=== PATIENT | female | born 1985 | race Caucasian/White ===

== ENCOUNTER → 2019-04-11 19:30 | Observation (INO) ==
[2019-04-11 19:33] LABS: Candida DNA Not Detected (Not Detect); Gardnerella DNA Not Detected (Not Detect); Trichomonas DNA Not Detected (Not Detect)
== END | disposition home or self-care (01) ==
LOC: 1NENULAB
PROVIDERS: ADMIT Registered Nurse; ATTEND Registered Nurse

== ENCOUNTER 2019-04-12 14:30 | Inpatient (IN) ==
[2019-04-19] MEDS ORDERED: Ringers Solution, Lactated 1,000 ML IVC ONE (10:16)
[2019-04-19] MEDS ORDERED: Famotidine 20 MG/2 ML VIAL IVP ONE (10:16)
[2019-04-19] MEDS ORDERED: CeFAZolin 2,000 MG/50 ML BAG IVPB ONE (10:16)
[2019-04-19] MEDS ORDERED: Metoclopramide 10 MG/2 ML VIAL IVP ONE (10:16)
[2019-04-19 10:46] LABS: Basophils % 0.3 %; Eosinophils % 0.2 %; Hemoglobin 10.6 g/dL (11.5-15.4); Immature Granulocytes % 1.4 % (0-4); Lymphocytes # 1.6 K/mcL (0.6-4.6); Mean Corpuscular HGB Conc 29.4 g/dL (31.6-35.5); Mean Corpuscular Hemoglobin 24.5 pg (28.0-33.3); Mean Corpuscular Volume 83.3 fL (83.0-100.0); Mean Platelet Volume 9.8 fL (9.4-12.4); Monocytes # 0.6 K/mcL (0.0-1.3); Monocytes % 6.4 %; Neutrophils # 6.7 K/mcL (1.6-8.9); Platelet Count 333 K/mcL (140-400); Red Blood Count 4.32 M/mcL (3.82-4.97); Red Cell Distribution Width 13.7 % (11.5-14.5); Segmented Neutrophils % 73.7 %; White Blood Count 9.1 K/mcL (4.3-11.1)
[2019-04-19 11:03] LABS: Amphetamine Screen,Urine Negative ng/mL (Cutoff=1000); Barbiturate Screen,Urine Negative ng/mL (Cutoff=200); Benzodiazepines Screen,Urine Negative ng/mL (Cutoff=200); Cannabinoid Screen,Urine Negative ng/mL (Cutoff = 50); Cocaine Screen,Urine Negative ng/mL (Cutoff= 300); Opiate Screen,Urine Negative ng/mL (Cutoff=300); Phencyclidine Screen,Urine Negative ng/mL (Cutoff=25)
[2019-04-19] MEDS: Ringers Solution, Lactated 1,000 ML IVC SCH ×2 (12:09→18:40)
[2019-04-19] MEDS ORDERED: *HR* Promethazine 25 MG/ML VIAL IVP PRN (15:07)
[2019-04-19] MEDS ORDERED: Acetaminophen IV 1,000 MG/100 ML INFUS..BTL IVPB ONE (15:07)
[2019-04-19] MEDS ORDERED: Ondansetron 4 MG/2 ML VIAL IVP ONE (15:07)
[2019-04-19] MEDS ORDERED: *HR* LORazepam 2 MG/ML VIAL IVP ONE (15:12)
[2019-04-19] MEDS ORDERED: Dextrose Gel 15 GM/37.5 ML TUBE PO ONE (17:23)
[2019-04-19] MEDS ORDERED: Metoclopramide 10 MG/2 ML VIAL IVP PRN ×2 (18:29→22:30)
[2019-04-19] MEDS ORDERED: D5% in Lactated Ringers 1,000 ML IVC SCH (18:30)
[2019-04-19] MEDS ORDERED: Sennosides 8.6 MG TABLET PO PRN (22:30)
[2019-04-19] MEDS ORDERED: *HR* OxyCODONE/APAP 5/325 TABLET PO PRN (22:30)
[2019-04-19] MEDS ORDERED: Ondansetron 4 MG/2 ML VIAL IVP PRN (22:30)
[2019-04-19] MEDS ORDERED: Rho Immune Globulin 1,500 UNIT SYRINGE IM ONE (22:30)
[2019-04-19] MEDS ORDERED: Oxytocin 20 units/ LR 1000 mL 20 UNIT/1,000 ML BAG IVC SCH (22:30)
[2019-04-19] MEDS ORDERED: Ketorolac 30 MG/ML VIAL IVP SCH (22:30)
[2019-04-20] MEDS ORDERED: Ringers Solution, Lactated 1,000 ML ONE (02:47)
[2019-04-20] MEDS: Acetaminophen 325 MG TABLET PO SCH ×3 (04:43→17:45)
[2019-04-20] MEDS ORDERED: D5% in Lactated Ringers 1,000 ML IVC SCH (04:45)
[2019-04-20 06:09] LABS: Basophils % 0.3 %; Eosinophils % 0.1 %; Hematocrit 28.6 % (35.3-44.9); Hemoglobin 8.7 g/dL (11.5-15.4); Immature Granulocytes % 0.5 % (0-4); Lymphocytes # 1.4 K/mcL (0.6-4.6); Lymphocytes % 18.1 %; Mean Corpuscular HGB Conc 30.4 g/dL (31.6-35.5); Mean Corpuscular Hemoglobin 25.1 pg (28.0-33.3); Mean Corpuscular Volume 82.7 fL (83.0-100.0); Monocytes # 0.4 K/mcL (0.0-1.3); Monocytes % 5.9 %; Neutrophils # 5.6 K/mcL (1.6-8.9); Platelet Count 276 K/mcL (140-400); Red Blood Count 3.46 M/mcL (3.82-4.97); Red Cell Distribution Width 13.7 % (11.5-14.5); Segmented Neutrophils % 75.1 %; White Blood Count 7.5 K/mcL (4.3-11.1)
[2019-04-20] MEDS ORDERED: Ringers Solution, Lactated 500 ML IVC ONE (07:55)
[2019-04-20] MEDS: Prenatal Vit/FA 1 EACH TABLET PO SCH (08:00)
[2019-04-20] MEDS: *HR* Metformin 500 MG TABLET PO SCH ×2 (08:03→17:43)
[2019-04-20] MEDS: Simethicone 80 MG TAB.CHEW PO SCH ×2 (09:52→15:18)
[2019-04-20] MEDS: Ibuprofen 600 MG TABLET PO SCH ×3 (12:04→17:44)
[2019-04-20] MEDS: Insulin LISPRO 300 UNITS/3 ML VIAL SQ SCH (12:08)
[2019-04-20] MEDS ORDERED: Insulin LISPRO 300 UNITS/3 ML VIAL SQ SCH (21:00)
[2019-04-21] MEDS: Ibuprofen 600 MG TABLET PO SCH ×2 (00:51→09:48)
[2019-04-21] MEDS: *HR* Metformin 500 MG TABLET PO SCH (09:47)
[2019-04-21] MEDS: Acetaminophen 325 MG TABLET PO SCH (09:47)
[2019-04-21] MEDS: Prenatal Vit/FA 1 EACH TABLET PO SCH (09:48)
[2019-04-21] MEDS: Simethicone 80 MG TAB.CHEW PO SCH (09:48)
[2019-04-21] MEDS: Insulin LISPRO 300 UNITS/3 ML VIAL SQ SCH (09:53)
[2019-04-21 15:25] VITALS: BP 129/83
== END 2019-04-21 11:33 | disposition home or self-care (01) | DRG 539 ==
LOC: PBBAOB 14:30 → 1NENULAB 04-19 10:06 → 1NENUOBS 04-19 22:57
PROVIDERS: ADMIT Obstetrics & Gynecology; ATTEND Obstetrics & Gynecology